=== PATIENT | female | born 1945 | race Caucasian/White ===

== ENCOUNTER 2020-04-03 10:16 | Emergency (ER) | payer MEDICARE ==
[2020-04-03] MEDS ORDERED: TETANUS/DIPHTHERIA TOXOID [ADULT] 0.5 ML VIAL IM ONE (10:39)
[2020-04-03] MEDS ORDERED: IBUPROFEN 800 MG TAB ONE (10:48)
== END 2020-04-03 11:43 | disposition home or self-care (01) ==
LOC: EDH 10:16
DX: S53.491A Other sprain of right elbow, initial encounter (principal); S80.211A Abrasion, right knee, initial encounter; S60.511A Abrasion of right hand, initial encounter; S80.212A Abrasion, left knee, initial encounter; E78.00 Pure hypercholesterolemia, unspecified; Z88.2 Allergy status to sulfonamides; Z90.710 Acquired absence of both cervix and uterus; W01.0XXA Fall on same level from slipping, tripping and stumbling without subsequent striking against object, initial encounter; Y93.89 Activity, other specified; Y92.89 Other specified places as the place of occurrence of the external cause; Y99.8 Other external cause status
CPT/HCPCS: 73080; 90471; 90714

== ENCOUNTER 2020-09-01 10:11 | Emergency (ER) | payer OTHER ==
[2020-09-01 10:26] LABS: BASOPHILS % (AUTO) 0.8 % (0.0-5.0); EOSINOPHILS % (AUTO) 3.5 % (0.0-8.0); HEMATOCRIT 42.2 % (36-48); LYMPHOCYTES % (AUTO) 28.3 % (21.0-51.0); MEAN CORPUSCULAR HEMOGLOBIN 29.8 pg (27.0-33.0); MEAN CORPUSCULAR HGB CONC 34.1 g/dL (32.0-36.0); MEAN CORPUSCULAR VOLUME 87.4 fL (79-99); MONOCYTES % (AUTO) 6.2 % (3.0-13.0); PLATELET COUNT (AUTO) 320 K/uL (130-400); RED BLOOD CELL COUNT(AUTO) 4.83 MIL/uL (4.00-5.50); RED CELL DISTRIBUTION WIDTH 13.2 % (11.0-15.5); WHITE BLOOD COUNT (AUTO) 8.3 K/uL (4.8-10.8)
[2020-09-01 10:33] LABS: POTASSIUM 3.5 mmol/L (3.5-5.1)
[2020-09-01 10:34] LABS: INR 0.99 (0.85-1.15); PROTHROMBIN TIME 10.8 SEC (9.6-11.6)
[2020-09-01 10:36] LABS: PARTIAL THROMBOPLASTIN TIME 26.1 SEC (26.3-35.5)
[2020-09-01 10:38] LABS: ALBUMIN 3.9 g/dL (3.5-5.0); BILIRUBIN,TOTAL 0.7 mg/dL (0.2-1.0); TOTAL PROTEIN, SERUM 7.7 g/dL (6.0-8.3)
[2020-09-01] MEDS ORDERED: ASPIRIN 325 MG TABLET ONE (10:39)
[2020-09-01 10:57] LABS: B-TYPE NATRIURETIC PEPTIDE 70 pg/mL (0-100)
[2020-09-01] MEDS ORDERED: LIDOCAINE HCL 2% VISCOUS 15 ML UDCUP ONE (11:04)
[2020-09-01] MEDS ORDERED: NITROGLYCERIN 1GM/1 INCH PACKET TD ONE (11:04)
[2020-09-01] MEDS ORDERED: MAG HYDROX/AL HYDROX/SIMETH ES 30 ML SUSP UDCUP ONE (11:04)
[2020-09-01] MEDS ORDERED: IOHEXOL-350 75 ML VIAL IV ONE (14:19)
== END 2020-09-01 17:21 | disposition home or self-care (01) ==
LOC: EDH 10:11
DX: R07.89 Other chest pain (principal); R42 Dizziness and giddiness; R06.02 Shortness of breath; E78.00 Pure hypercholesterolemia, unspecified; Z90.710 Acquired absence of both cervix and uterus; Z88.2 Allergy status to sulfonamides
CPT/HCPCS: 36415; 71045; 71275; 80053; 82550; 83690; 83880; 84484 ×2; 85025; 85378; 85610; 85730; 93005 ×2; 93971; 99285; Q9967

== ENCOUNTER 2022-05-24 12:21 | Emergency (ER) | payer OTHER ==
[~2022-05-24] VITALS: Ht 165.1 cm; Wt 83.9 kg
[2022-05-24 13:20] VITALS: BP 138/62
[2022-05-24] MEDS ORDERED: IBUP-2070 PO (13:39)
[2022-05-24] MEDS ORDERED: IBUPROFEN 600 MG TABLET PO ONE (14:00)
== END 2022-05-24 14:35 | disposition home or self-care (01) ==
LOC: EDH 12:21
DX: S42.295A Other nondisplaced fracture of upper end of left humerus, initial encounter for closed fracture (principal); E78.00 Pure hypercholesterolemia, unspecified; Z90.49 Acquired absence of other specified parts of digestive tract; Z90.710 Acquired absence of both cervix and uterus; W01.0XXA Fall on same level from slipping, tripping and stumbling without subsequent striking against object, initial encounter; Y93.89 Activity, other specified; Y92.89 Other specified places as the place of occurrence of the external cause; Y99.8 Other external cause status
CPT/HCPCS: 29105; 73030